=== PATIENT | female | born 1995 | race Caucasian/White ===

== ENCOUNTER 2020-08-02 12:15 | Emergency (ER) | payer OTHER ==
[~2020-08-02] VITALS: Ht 165.1 cm; Wt 59.0 kg
[2020-08-02 12:40] VITALS: BP 115/73
[2020-08-02 12:57] LABS: BASOPHILS % (AUTO) 1.4 % (0.0-2.0); EOSINOPHILS % (AUTO) 1.7 % (0.0-3.0); HEMATOCRIT 44.7 % (37.0-47.0); LYMPHOCYTES % (AUTO) 28.9 % (20.0-45.0); MEAN CORPUSCULAR VOLUME 93 FL (80-99); MONOCYTES % (AUTO) 7.1 % (1.0-10.0); PLATELET COUNT 205 K/UL (150-450); RED BLOOD COUNT 4.79 M/UL (4.20-5.40); WHITE BLOOD COUNT 5.4 K/UL (4.8-10.8)
--- NOTE | 2020-08-02 12:58 | Emergency Room Report ---
History of Present Illness General Chief Complaint: Abdominal Pain Source: Patient Present Illness [facility] Disclaimer: Please note that this report is being documented using DRAGON technology. This can lead to erroneous entry secondary to incorrect interpretation by the dictating instrument. HPI: Is a 25-year-old female presenting for evaluation of abdominal pain and vomiting. Symptoms present 2 days. She notes persistent nausea for the week but over the past 2 days has been unable to hold down any food or liquids. Mild diarrhea as well. Pain is localized in the epigastrium and right upper quadrant. Denies significant alcohol use. Denies prior history of gallstones or hepatitis. Pain exacerbated by eating and drinking somewhat relieved by rest. She feels a burning radiation up to the chest. Denies cough, chest palpitations, chest pain, fever, chills. No prior history of intra-abdominal surgeries. Denies possibility of . PMH: Reviewed PSH: Reviewed Allergies: Denied Social Hx: Denies drug or alcohol abuse Allergies: Coded Allergies: No Known Allergies (Unverified , 08/02/20) COVID-19 Screening Contact w/high risk pt: No Experienced COVID-19 symptoms?: No COVID-19 Testing performed H[employer]ATOR: No Patient History Last Menstrual Period: 07/16/20 Nursing Documentation-PMH Past Medical History: No History, Except For Review of Systems All Other Systems: negative except mentioned in HPI Physical Exam Vital Signs Date Time Temp Pulse Resp B/P (MAP) Pulse Ox O2 Delivery O2 Flow Rate FiO2 08/02/20 12:22 98.6 78 116/78 (91) 16 Room Air 08/02/20 12:40 16 08/02/20 12:40 98 General: Awake and alert, no acute distress HEENT: NC/AT. EOMI. Cardiovascular: RRR. S1 and S2 normal. No murmur appreciated Resp: Normal work of breathing. No cough, wheezing or crackles appreciated Abdomen: Abdomen is soft, nondistended. Tenderness palpation in the epigastric and right upper quadrant. Indeterminate whether or not there is Thorpe's tenderness. Minimal tenderness left upper quadrant in the lower quadrants there is no tenderness. Skin: Intact. No abrasions, laceration or rash over the exposed skin MSK: Normal tone and bulk. Moving all extremities. No obvious deformity. Neuro: Awake and alert. Mentating appropriately. Medical Decision Making Diagnostic Impression: Primary Impression: Nausea and vomiting ER Course Is a 25-year-old female presenting for evaluation of 2 days abdominal pain vomiting. Differential includes was not limited to gastritis, gastroenteritis, viral syndrome, cholecystitis, pancreatitis, UTI, pyelonephritis, nephrolithiasis, mesenteric ischemia, topic among others. Patient arrives with stable vital signs. IVs established, IV fluids, antiemetics, antacids and pain medication administered. CBC and chemistry returned within normal limits. hCG negative. No clear evidence of urinary tract infection. Ultrasound showed mildly dilated CBD without other signs of acute cholecystitis. LFTs are within normal limits. Patient's pain is improving. I have little clinical suspicion for cholecystitis and the patient does not want any further testing in the emergency department at this time. She would like a copy of her report and labs which were provided to her. She is to follow-up with her PMD. Discussed that she should return if her abdominal pain or vomiting persist. She understands and agrees with this treatment plan will be discharged home. Laboratory Tests Test 08/02/20 12:40 08/02/20 14:00 White Blood Count 5.4 K/UL (4.8-10.8) Red Blood Count 4.79 M/UL (4.20-5.40) Hemoglobin 15.0 G/DL (12.0-16.0) Hematocrit 44.7 % (37.0-47.0) Mean Corpuscular Volume 93 FL (80-99) Mean Corpuscular Hemoglobin 31.2 PG (27.0-31.0) H Mean Corpuscular Hemoglobin Concent 33.5 G/DL (32.0-36.0) Red Cell Distribution Width 12.0 % (11.6-14.8) Platelet Count 205 K/UL (150-450) Mean Platelet Volume 6.6 FL (6.5-10.1) Neutrophils (%) (Auto) 61.0 % (45.0-75.0) Lymphocytes (%) (Auto) 28.9 % (20.0-45.0) Monocytes (%) (Auto) 7.1 % (1.0-10.0) Eosinophils (%) (Auto) 1.7 % (0.0-3.0) Basophils (%) (Auto) 1.4 % (0.0-2.0) Sodium Level 139 MMOL/L (136-145) Potassium Level 3.7 MMOL/L (3.5-5.1) Chloride Level 106 MMOL/L (98-107) Carbon Dioxide Level 27 MMOL/L (21-32) Blood Urea Nitrogen 5 mg/dL (7-18) L Creatinine 0.8 MG/DL (0.55-1.30) Estimated Glomerular Filtration Rate > 60 mL/min (>60) Glucose Level 85 MG/DL (74-106) Calcium Level 8.3 MG/DL (8.5-10.1) L Total Bilirubin 0.5 MG/DL (0.2-1.0) Aspartate Amino Transferase (AST) 16 U/L (15-37) Alanine Aminotransferase (ALT) 16 U/L (12-78) Alkaline Phosphatase 41 U/L (46-116) L Troponin I 0.000 ng/mL (0.000-0.056) Total Protein 7.5 G/DL (6.4-8.2) Albumin 4.0 G/DL (3.4-5.0) Globulin 3.5 g/dL Albumin/Globulin Ratio 1.1 (1.0-2.7) Lipase 193 U/L (73-393) Urine Color Pale yellow Urine Appearance Clear Urine pH 7 (4.5-8.0) Urine Specific [place] 1.005 (1.005-1.035) Urine Protein Negative (NEGATIVE) Urine Glucose (UA) Negative (NEGATIVE) Urine Ketones Negative (NEGATIVE) Urine Blood Negative (NEGATIVE) Urine Nitrite Negative (NEGATIVE) Urine Bilirubin Negative (NEGATIVE) Urine Urobilinogen Normal MG/DL (0.0-1.0) Urine Leukocyte Esterase 2+ (NEGATIVE) H Urine RBC 0 /HPF (0 - 2) Urine WBC 2-4 /HPF (0 - 2) Urine Squamous Epithelial Cells Occasional /LPF Urine Bacteria None /HPF (NONE) Urine HCG, Qualitative Negative (NEGATIVE) Last Vital Signs Date Time Temp Pulse Resp B/P (MAP) Pulse Ox O2 Delivery O2 Flow Rate FiO2 08/02/20 12:40 72 16 Room Air 98 08/02/20 12:40 98.6 115/73 98 Disposition: HOME, SELF-CARE Condition: Stable Scripts Mag Hydrox/Al Hydrox/Simeth (MAALOX MAXIMUM STRENGTH SUSP) 355 Ml Oral.susp 15 ML PO TID, #355 ML Prov: Vignesh Gray MD 08/02/20 Famotidine* (Pepcid 20mg tablet*) 20 Mg Tablet 20 MG ORAL DAILY for Gerd, #30 TAB 0 Refills Prov: Vignesh Gray MD 08/02/20 Ondansetron Odt* (ZOFRAN ODT*) 4 Mg Tab.rapdis 4 MG BC EVERY 6 HOURS PRN for Nausea & Vomiting, #20 TAB 0 Refills Prov: Vignesh Gray MD 08/02/20 Vignesh Gray MD Aug 02, 2020 12:58
[2020-08-02] MEDS ORDERED: Dicyclomine HCl 10mg/5ml oral soln ORAL ONE (13:00)
[2020-08-02] MEDS ORDERED: Mylanta II UD 30ml ORAL ONE (13:00)
[2020-08-02] MEDS ORDERED: Lidocaine 2% Visc 15ml soln ORAL ONE (13:00)
[2020-08-02 13:07] LABS: ALANINE AMINOTRANSFERASE 16 U/L (12-78); ALBUMIN/GLOBULIN RATIO 1.1 (1.0-2.7); ALKALINE PHOSPHATASE 41 U/L (46-116); ASPARTATE AMINO TRANSFERASE 16 U/L (15-37); BILIRUBIN,TOTAL 0.5 MG/DL (0.2-1.0); BLOOD UREA NITROGEN 5 mg/dL (7-18); CALCIUM 8.3 MG/DL (8.5-10.1); CARBON DIOXIDE 27 MMOL/L (21-32); CREATININE 0.8 MG/DL (0.55-1.30)
[2020-08-02 13:18] LABS: CHLORIDE 106 MMOL/L (98-107); POTASSIUM 3.7 MMOL/L (3.5-5.1); SODIUM 139 MMOL/L (136-145)
[2020-08-02] MEDS ORDERED: FAMOTIDINE20 MG ORAL (13:48)
[2020-08-02] MEDS ORDERED: ONDANSETRON ODT4 MG BC (13:48)
[2020-08-02] MEDS ORDERED: MAALOX MAXIMUM355 M1 PO (13:48)
--- NOTE | 2020-08-02 14:20 | Diagnostic Imaging Report ---
ABDOMINAL ULTRASOUND - COMPLETE INDICATION: Abdominal pain TECHNIQUE: Multiplanar ultrasound examination of the abdomen with greyscale and doppler imaging. COMPARISON: None FINDINGS: Liver: The liver is normal in size and demonstrates diffusely increased echogenicity. No focal abnormalities are noted. Gallbladder: The gallbladder is normal. No stones are visualized. The wall is not thickened. No sonographic Thorpe sign. Common bile duct: Mildly dilated, measuring up to 4.5 mm. Pancreas: The visualized portion of pancreas is normal in echogenicity. There are no masses. Kidneys: The kidneys are normal in size and echogenicity. There is no hydronephrosis. Spleen: The spleen is normal in size and echogenicity. Aorta: The aorta is normal in caliber. IMPRESSION: 1. Mildly dilated common bile duct. Correlation with LFTs including bilirubin is recommended, and further evaluation with cross-sectional imaging is recommended to exclude distal obstructive process. 2. Hepatic steatosis.
[2020-08-02 14:36] LABS: APPEARANCE,URINE CLEAR; BILIRUBIN, URINE NEGATIVE (NEGATIVE); COLOR,URINE PALE YELLOW; GLUCOSE, URINE (UA) NEGATIVE (NEGATIVE); KETONES,URINE NEGATIVE (NEGATIVE); LEUKOCYTE ESTERASE ,URINE 2+ (NEGATIVE); NITRITE,URINE NEGATIVE (NEGATIVE); PH,URINE 7 (4.5-8.0); PROTEIN,URINE NEGATIVE (NEGATIVE); UROBILINOGEN,URINE NORMAL MG/DL (0.0-1.0)
[2020-08-02 14:48] VITALS: BP 117/75
[2020-08-02 14:55] VITALS: BP 120/79
== END 2020-08-02 14:57 | disposition home or self-care (01) ==
LOC: EMR 13:26
DX: R11.2 Nausea with vomiting, unspecified (principal)
CPT/HCPCS: 36415; 76700; 80053; 81003; 81025; 83690; 84484; 85025; 96374; 96375; 99284; J2405; S0028